=== PATIENT | female | born 1980 | race Caucasian/White ===

== ENCOUNTER → 2021-03-26 | Outpatient (CLI) | payer OTHER ==
[~2021-03-26] MED LIST: Augmentin600 MG/5 M PO; LORA.5 PO; Mupirocin22 GM; RISP1 PO
[2021-03-27 09:30] LABS: T. vaginalis (DNA Probe) Negative (NEGATIVE)
[2021-03-27 09:31] LABS: Candida species (DNA Probe) Negative (NEGATIVE); G. vaginalis (DNA Probe) Negative (NEGATIVE)
== END | disposition home or self-care (01) ==
LOC: LAB 12:00 → LAB SHORT 12:00
PROVIDERS: Obstetrics & Gynecology
DX: N89.8 Other specified noninflammatory disorders of vagina (principal)
CPT/HCPCS: 87480; 87510; 87660

== ENCOUNTER → 2022-07-14 | Outpatient (CLI) | payer OTHER | END | disposition home or self-care (01) | DX: R73.03 Prediabetes (principal) ==

== ENCOUNTER 2022-09-24 22:40 | Inpatient (IN) | payer OTHER ==
[~2022-09-24] VITALS: Ht 147.3 cm; Wt 45.5 kg
[2022-09-25 00:10] LABS: BASOPHILS ABSOLUTE AUTO 0.01 K/mm3 (0.00-0.23); BASOPHILS PERCENT AUTO 0 % (0-2); EOSINOPHILS PERCENT AUTO 0 % (0-6); Hematocrit 43.1 % (33.0-51.0); Hemoglobin 14.7 g/dL (11.5-16.0); IMMATURE GRAN ABSOLUTE AUTO 0.01 K/mm3 (0.00-0.10); IMMATURE GRAN PERCENT AUTO 0 % (0-1); LYMPHOCYTES PERCENT AUTO 21 % (21-46); MONOCYTES ABSOLUTE AUTO 0.74 K/mm3 (0.16-1.47); MONOCYTES PERCENT AUTO 9 % (4-13); Mean Corpuscular HGB 30.6 pg (26.0-34.0); Mean Corpuscular HGB Conc 34.1 g/dL (31.5-36.5); Mean Corpuscular Volume 90 fL (80-100); Mean Platelet Volume 11.9 fL (9.1-12.4); NEUTROPHILS ABSOLUTE AUTO 5.53 K/mm3 (1.96-9.15); NEUTROPHILS PERCENT AUTO 69 % (41-73); Platelet Count 187 K/mm3 (150-400); RDW Coefficient Variation 12.4 % (11.7-14.2); Red Blood Cell Count 4.81 M/mm3 (3.80-5.20); White Blood Cell Count 7.99 K/mm3 (4.00-11.30)
[2022-09-25 00:31] LABS: Albumin, Blood 3.2 g/dL (3.4-5.0); Albumin/Globulin Ratio 0.9 (0.8-1.8); Bilirubin, Total 0.3 mg/dL (0.1-1.0); Bun/Creatinine Ratio 21.5 (12.0-20.0); Calcium, Blood 9.1 mg/dL (8.5-10.1); Creatinine, Blood 0.65 mg/dL (0.40-1.00); Globulin, Blood 3.6 g/dL (2.2-4.0); Total Protein, Blood 6.8 g/dL (6.4-8.2)
[2022-09-25] MEDS ORDERED: FAMO20 (01:27)
[2022-09-25] MEDS ORDERED: LORA.5 PO (01:28)
[2022-09-25] MEDS ORDERED: LORA10ER PO (01:28)
[2022-09-25] MEDS ORDERED: METF500 PO (01:29)
[2022-09-25] MEDS ORDERED: DULCOLAX400 MG/5 M PO (01:29)
[2022-09-25] MEDS ORDERED: ONDA4 (01:29)
[2022-09-25] MEDS ORDERED: NYSTRIT TOP (01:29)
[2022-09-25] MEDS ORDERED: Pyridium100 MG PO (01:30)
[2022-09-25] MEDS ORDERED: SERT25 PO (01:31)
[2022-09-25] MEDS ORDERED: RISP1 PO (01:31)
[2022-09-25 03:02] LABS: Bicarbonate Venous 26.8 mmol/L (24.0-30.0); PCO2 Venous 41.1 mmHg (38-42); pH Blood Venous 7.43 (7.34-7.37)
[2022-09-25 07:51] LABS: SARS-Cov-2 (COVID-19) PCR, MMC POSITIVE (NEGATIVE)
--- NOTE | 2022-09-25 18:34 | NUR ---
SHIFT SUMMARY PT ALERT, NOT ABLE TO FOLLOW COMMANDS, SP02>90% ON 2L NC. PT WAS ABLE TO TOLERATE BEING ON RA IN THE MORNING, BUT D/T FREQUENT COUGHING, REQUIRED 2L TO MAINTAIN ABOVE 90. COUGHING IS NON PRODUCTIVE. NO TELE. VSS. PT INCONTINENT, C/D ATTENDS IN PLACE. NO BM THIS SHIFT. PT KEPT TAKING OFF OXYGEN TUBING, REDIRECTION W/ NO SUCCESS. CALL PLACED TO MD CHAVIS. MD CHAVIS W/ ORDERS FOR ONE TIME ATIVAN IV. PT'S FACILITY DID BRING IN ATTACHMENT TO PEG TUBE THIS AFTERNOON, LOCATED CURRENTLY ON PT'S TABLE. CALL LIGHT IN REACH .
[2022-09-26 05:13] LABS: BASOPHILS PERCENT AUTO 0 % (0-2); EOSINOPHILS PERCENT AUTO 0 % (0-6); Hematocrit 37.7 % (33.0-51.0); Hemoglobin 12.9 g/dL (11.5-16.0); IMMATURE GRAN ABSOLUTE AUTO 0.01 K/mm3 (0.00-0.10); IMMATURE GRAN PERCENT AUTO 0 % (0-1); LYMPHOCYTES ABSOLUTE AUTO 1.72 K/mm3 (0.84-5.20); LYMPHOCYTES PERCENT AUTO 32 % (21-46); MONOCYTES PERCENT AUTO 11 % (4-13); Mean Corpuscular HGB 30.4 pg (26.0-34.0); Mean Corpuscular HGB Conc 34.2 g/dL (31.5-36.5); Mean Corpuscular Volume 89 fL (80-100); Mean Platelet Volume 11.6 fL (9.1-12.4); NEUTROPHILS ABSOLUTE AUTO 3.12 K/mm3 (1.96-9.15); NEUTROPHILS PERCENT AUTO 57 % (41-73); Platelet Count 204 K/mm3 (150-400); RDW Coefficient Variation 12.6 % (11.7-14.2); RDW Standard Deviation 41.2 fL (35.1-46.3); Red Blood Cell Count 4.25 M/mm3 (3.80-5.20); White Blood Cell Count 5.45 K/mm3 (4.00-11.30)
[2022-09-26 05:53] LABS: Albumin, Blood 2.8 g/dL (3.4-5.0); Albumin/Globulin Ratio 0.9 (0.8-1.8); Bilirubin, Total 0.4 mg/dL (0.1-1.0); Bun/Creatinine Ratio 30.9 (12.0-20.0); Calcium, Blood 8.7 mg/dL (8.5-10.1); Creatinine, Blood 0.61 mg/dL (0.40-1.00); Globulin, Blood 3.2 g/dL (2.2-4.0); Potassium, Blood 3.7 mmol/L (3.5-5.5)
--- NOTE | 2022-09-26 06:12 | NUR ---
RESTLESS AND AGITATED ALL NIGHT, 2 DOSES OF ATIVAN PRN, RISPERDAL AT HS, TYLENOL AND ZOFRAN, GAVE HER A BATH, WASHED HER HAIR, REPOSITIONED ALL SHIFT, GOOD ORAL CARE X'S 2, VSS, ON RA ALL SHIFT AND MAINTAINING SATS .90
[2022-09-26] MEDS ORDERED: DECADRON6 M1 PT (13:46)
== END 2022-09-26 15:55 | disposition home or self-care (01) | DRG 177 ==
LOC: ER 22:40 → PCU 22:41
PROVIDERS: Internal Medicine; Student in an Organized Health Care Education/Training Program; ADMIT Internal Medicine
PROC: XW033E5 Introduction of Remdesivir Anti-infective into Peripheral Vein, Percutaneous Approach, New Technology Group 5 (ICD-10-PCS; principal; 2022-09-25)
DX: U07.1 COVID-19 (principal); J96.01 Acute respiratory failure with hypoxia; J40 Bronchitis, not specified as acute or chronic; F41.9 Anxiety disorder, unspecified; G80.9 Cerebral palsy, unspecified; R13.10 Dysphagia, unspecified; R73.03 Prediabetes; Z79.899 Other long term (current) drug therapy; Z93.1 Gastrostomy status
CPT/HCPCS: 36415; 71045; 80053; 82803; 83690; 84145; 85025; 96365; 96372; 96374; 96375; 96376; 99285-25; A9270; C1751; G0378; J0248; J0780; J1100; J1650; J2060; J2405; J2765; J7030; J7050; U0004

== ENCOUNTER → 2022-12-15 | Outpatient (CLI) | payer OTHER ==
[~2022-12-15] MED LIST changes: +DECADRON6 M1 PT; +DULCOLAX400 MG/5 M PO; +FAMO20; +Guaifenesin Wit10 ML PO; +LORA10ER PO; +METF500 PO; +NYSTRIT TOP; +ONDA4; +PREDNISOLO15 MG/5 ML PO; +Pyridium100 MG PO; +SERT25 PO
[2022-12-15 16:56] LABS: BASOPHILS PERCENT AUTO 0 % (0-2); EOSINOPHILS ABSOLUTE AUTO 0.02 K/mm3 (0.00-0.68); EOSINOPHILS PERCENT AUTO 0 % (0-6); Hematocrit 39.3 % (33.0-51.0); IMMATURE GRAN ABSOLUTE AUTO 0.01 K/mm3 (0.00-0.10); IMMATURE GRAN PERCENT AUTO 0 % (0-1); LYMPHOCYTES ABSOLUTE AUTO 2.03 K/mm3 (0.84-5.20); LYMPHOCYTES PERCENT AUTO 25 % (21-46); MONOCYTES ABSOLUTE AUTO 1.08 K/mm3 (0.16-1.47); MONOCYTES PERCENT AUTO 13 % (4-13); Mean Corpuscular HGB Conc 33.1 g/dL (31.5-36.5); Mean Corpuscular Volume 82 fL (80-100); Mean Platelet Volume 11.3 fL (9.1-12.4); NEUTROPHILS ABSOLUTE AUTO 4.94 K/mm3 (1.96-9.15); NEUTROPHILS PERCENT AUTO 61 % (41-73); Platelet Count 340 K/mm3 (150-400); RDW Coefficient Variation 13.3 % (11.7-14.2); RDW Standard Deviation 39.3 fL (35.1-46.3); Red Blood Cell Count 4.81 M/mm3 (3.80-5.20); White Blood Cell Count 8.08 K/mm3 (4.00-11.30)
[2022-12-15 17:05] LABS: Albumin, Blood 3.3 g/dL (3.4-5.0); Albumin/Globulin Ratio 0.9 (0.8-1.8); Bilirubin, Total 0.1 mg/dL (0.1-1.0); Bun/Creatinine Ratio 14.9 (12.0-20.0); Calcium, Blood 9.9 mg/dL (8.5-10.1); Creatinine, Blood 0.74 mg/dL (0.40-1.00); Globulin, Blood 3.8 g/dL (2.2-4.0); Potassium, Blood 4.8 mmol/L (3.5-5.5); Total Protein, Blood 7.1 g/dL (6.4-8.2)
== END | disposition home or self-care (01) ==
LOC: LAB 16:48 → LAB SHORT 16:48
PROVIDERS: Physician Assistant
DX: R73.9 Hyperglycemia, unspecified (principal)
CPT/HCPCS: 80053; 85025

== ENCOUNTER → 2022-12-28 | Outpatient (CLI) | payer OTHER ==
[2022-12-28 07:23] LABS: Source, Urine Voided
[2022-12-28 09:53] LABS: Amorphous Heavy (0-Heavy); Bacteria Few /hpf; Red Blood Cells, Urine Not Seen /hpf (0-2); Squamous Epithelial Cells Not Seen /hpf (Few); White Blood Cells, Urine 0-2 /hpf (0-5)
[2022-12-28 09:54] LABS: Uric Acid Crystals Few /hpf
[2022-12-28 10:08] LABS: Microalb/Creat Ratio UR, Rand 7.533 mg/g (0.000-30.000); Microalbumin, Random Urine 11.3 mg/L (0.000-20.000)
== END | disposition home or self-care (01) ==
LOC: LAB 06:30 → LAB SHORT 06:30
PROVIDERS: Family Medicine
DX: E11.9 Type 2 diabetes mellitus without complications (principal); R11.2 Nausea with vomiting, unspecified
CPT/HCPCS: 81015; 82043; 82570; 87077; 87086; 87186

== ENCOUNTER → 2023-06-16 | Outpatient (CLI) | payer OTHER ==
[2023-06-16 14:49] LABS: Source, Urine Voided
[2023-06-16 16:10] LABS: Appearance, Urine Clear (Clear); Bilirubin, Urine Neg (Neg); Blood, Urine 3+ (Neg); Glucose Qualitative, Urine Neg (Neg); Ketones, Urine Neg (Neg); Leukocyte Esterase, Urine Neg (Neg); Nitrite, Urine Neg (Neg); Protein, Urine Neg (Neg); Specific Gravity, Urine 1.015 (1.003-1.022); Urobilinogen, Urine NORM (Normal)
[2023-06-16 16:24] LABS: Color, Urine Pale Yellow (P-Yellow)
[2023-06-16 16:25] LABS: Bacteria Rare /hpf; Red Blood Cells, Urine 0-2 /hpf (0-2); Squamous Epithelial Cells Few /hpf (Few); White Blood Cells, Urine 0-2 /hpf (0-5)
== END | disposition home or self-care (01) ==
LOC: LAB 14:00 → LAB SHORT 14:00
PROVIDERS: Family Medicine
DX: N39.0 Urinary tract infection, site not specified (principal)
CPT/HCPCS: 81001; 87086